=== PATIENT | male | born 1970 | race Caucasian/White ===

== ENCOUNTER 2022-10-01 21:56 | Inpatient (IN) | payer OTHER, SELFPAY ==
[2022-10-01 21:56] VITALS: BP 161/104; PULSE 85; RESP 18; TEMP 36.6; O2SAT 95
[2022-10-01 22:00] VITALS: BP 161/104; PULSE 85; RESP 18; TEMP 36.6; O2SAT 95
--- NOTE | 2022-10-01 22:22 | PC.NURSE ---
96 HH Rights Copy of 96 Hour Hold rights served to pt by this RN and security. No questions at this time.
[2022-10-01 22:33] VITALS: BMI 38.2
--- NOTE | 2022-10-01 22:45 | PC.NURSE ---
Pt arrived to NPU w/police escort. 96 hour hold paperwork completed. Pt is alert and orientated to self, unaware of time and situation. Pt presents w/emesis present on his clothing, police state he threw up during transport. Pt is difficult to assess d/t difficulty finding words and confusion. Assessment completed and pt shown to his room.
[2022-10-02 06:00] VITALS: BP 120/73; PULSE 78; RESP 16; O2SAT 95
[2022-10-02] MEDS: lithium carbonate 300 mg Capsule 600 MG PO (08:41)
[2022-10-02] MEDS: CLONazepam 1 mg Tablet PO ×2 (08:41→18:35)
[2022-10-02] MEDS: propranolol 20 mg Tablet 10 MG PO ×2 (08:41→18:35)
[2022-10-02] MEDS: nicotine 2 mg Gum BUCCAL ×2 (12:43→15:52)
[2022-10-02 13:34] VITALS: BP 132/82; PULSE 88; RESP 16; TEMP 36.4; O2SAT 99
--- NOTE | 2022-10-02 14:12 | P.NPUHP_ITS ---
Providers/Chief Complaint Admitting Physician: Tera Wolfe MD Chief Complaint: SI [facility] NPU History of Present Illness Juni Tay is a 52 year old male who presented to the [facility] in [facility] with the patient engaged in bizarre behavior and not able to provide any information regarding his wellbeing. Patient had apparently just been recently discharged from an inpatient unit in [place] on 09/25/2022. Per records, the patient had been compliant with his medication. He had been transferred to the neuropsychiatric unit at [facility] for further evaluation and treatment. The patient was unable to provide any information on the unit regarding his care as he appeared very confused and stated that he could not remember anything. Per information gathered from the patient's , the patient had been discharged on Klonopin, lithium,, olanzapine, Cogentin, and propranolol. She reports that the patient had been compliant with his medications for a week but had continued to decompensate. The patient had a reported history of bipolar disorder and according to his he had been hospitalized numerous times for bipolar disorder. According to previous record s, patient prior to admission had been engaging in unusual behavior including spraying hairspray's in the room and had been unable to engage in completing activities of daily living with the patient not brushing his teeth and completing personal hygiene. The patient's had stated that patient had been having this problem for about 4 years and had recently become worse since his last hospitalization in [place]. Past psychiatric history: History of bipolar type I. Inpatient psychiatric history: History of multiple inpatient hospitalization. Current medications: Bernice 600 mg twice a day, olanzapine 20 mg at night, Seroquel 500 mg at night, Cogentin 2 mg at night, Klonopin 1 mg at night, propranolol 20 mg daily Drug and alcohol history: None reported, urine drug screen was negative for any illicit drugs and negative for alcohol. Allergies: No known drug allergies Medical history: None Surgical history: None Family psychiatric history none reported Psychosocial history: Patient has been and reports having no children. He reports having received a masters in education. Meds NPU Home Medications Medication Instructions Recorded Confirmed Last Taken Type benztropine 1 mg tablet 1 mg PO BEDTIME 10/01/22 10/01/22 Unknown History clonazepam 1 mg tablet (Klonopin) 1 mg PO BID 10/01/22 10/01/22 Unknown History lithium carbonate 600 mg capsule 600 mg PO BID 10/01/22 10/01/22 Unknown History olanzapine 15 mg tablet 15 mg PO QPM 10/01/22 10/01/22 Unknown History propranolol 10 mg tablet 10 mg PO BID 10/01/22 10/01/22 Unknown History quetiapine 100 mg tablet (Seroquel) 100 mg PO BEDTIME 10/01/22 10/01/22 Unknown History quetiapine 400 mg tablet (Seroquel) 400 mg PO BEDTIME 10/01/22 10/01/22 Unknown History Allergies Allergy/AdvReac Type Severity Reaction Status Date / Time No Known Allergies Allergy Verified 10/01/22 22:59 Mental Status Exam MSE Comments: The patient was initially seen walking the hallway with a steady but slow gait. He had urinated on himself earlier that day. His hygiene was poor he is an obese white male who appeared his stated age. There was a mild tremor appreciated bilaterally. His speech was slurred and monotone with significant increased latency in speech. He was friendly and cooperative on interview. He was alert to his name only and was unable to provide information regarding the name of the hospital, the day , the year, the month, or the day of the week. He was able to tell us that his day and month of but not the year. He appeared very confused. He also appeared to have a significant intention tr emor. His thought process was nonlinear and showed evidence of looseness of associations. He did not endorse suicidal or homicidal ideation. He did at times appear to be responding to internal stimuli. He was unable to follow three-step commands. His attention span was impaired. He had placed a Post-it note on his ear and was unable to explain why it was on his face. His insight and judgment are impaired his impulse control appeared poor. Vitals/I&O/Wt Last Vital Signs Temp 97.5 F L 10/02/22 13:34 Pulse 88 10/02/22 13:34 Resp 16 10/02/22 13:34 BP 132/82 10/02/22 13:34 Pulse Ox 99 10/02/22 13:34 O2 Del Method Room Air 10/02/22 06:00 Weight last 48 hrs Weight 117.651 kg A&P Assessment and plan (1) Bipolar I disorder with amanda: (2) Acute alteration in mental status: (3) [place] toxicity: Plan Patient is a 52-year-old white male with a reported history of type I bipolar disorder with psychotic symptoms who appears to have declining function over the past week but appears possibly delirious at this time. 1.?Encourage individual, group and milieu therapy. 2.?Recommend sober living treatment at the highest level of care to which the patient is willing to commit. 3.??? Continue q-15 minute checks for safety.? 4. Hold Bernice at this time with concern with lithium toxicity. Check kennedy ctrolytes and lithium level stat 5. Restart other medications including zyprexa. Involuntary Hold Information 96 Hour Hold: 96 Hour Involuntary Admission: Yes 96 Hour Hold Ending Date: 10/05/22 96 Hour Hold Ending Time: 21:55 Attestations NPU Medical Necessity Statement*: Inpatient hospitalization is medically necessary and deemed to be the clinically appropriate intervention at this time. We will monitor and initiate medications while making changes as indicated. He will be in the hospital for over 2 midnights. Is likely length of stay is 5 to 7 days. Coding Level of Care Code Acute Code for [facility] Fwd Diagnoses Bipolar I disorder with amanda F31.10 Acute alteration in mental status R41.82 [place] toxicity T56.891A
[2022-10-02 15:32] LABS: Carbon Dioxide 23 mmol/L (22-29); Chloride 101 mmol/L (98-107); Sodium 135 mmol/L (136-145)
[2022-10-02 15:34] LABS: Anion Gap 14.7 (5-19); Potassium 3.7 mmol/L (3.5-5.1)
[2022-10-02 15:39] LABS: Lithium 1.2 mmol/L (0.6-1.2)
[2022-10-02] MEDS: OLANZapine 5 mg TABLET 15 MG PO (18:35)
[2022-10-02 20:18] VITALS: BP 141/90; PULSE 88; RESP 18; TEMP 36.4; O2SAT 95
[2022-10-02] MEDS: quetiapine 100 mg Tablet 400 MG PO (20:29)
[2022-10-02] MEDS: quetiapine 100 mg Tablet PO (20:29)
[2022-10-02] MEDS: benztropine 1 mg Tablet PO (20:29)
[2022-10-02 21:20] LABS: Add Urine Microscopic? NO; Charge for UA Resulting for Rev
[2022-10-02 21:24] LABS: Bilirubin Urine 1+ (Negative); Blood Urine Neg (Negative); Glucose Urine UA Norm (Normal); Ketones Urine Negative (Negative); Leukocyte Esterase Urine Negative (Negative); Nitrate Urine Negative (Negative); Protein Urine Neg (Negative); Urine Appearance Clear (CLEAR); Urine Color Dark Yellow (Yellow); Urobilinogen Urine 1 mg/dL (Negative); pH Urine 5 (5-7)
[2022-10-02] MEDS: OLANZapine 5 mg ODT PO (22:40)
[2022-10-02] MEDS: albuterol 2.5 mg/3 mL Neb INHALATION (22:56)
[2022-10-02 22:57] VITALS: PULSE 98; RESP 18; O2SAT 96
--- NOTE | 2022-10-03 06:42 | PC.NURSE ---
Pt would not wake up for vital signs. Respiration Rate 18.
[2022-10-03] MEDS: CLONazepam 1 mg Tablet PO (09:17)
[2022-10-03] MEDS: propranolol 20 mg Tablet 10 MG PO ×2 (09:17→17:35)
[2022-10-03] MEDS: nicotine 2 mg Gum BUCCAL ×3 (11:53→17:35)
[2022-10-03 14:00] VITALS: BP 127/89; PULSE 84; RESP 17; TEMP 36.7; O2SAT 96
--- NOTE | 2022-10-03 16:53 | P.NPUPN_ITS ---
Subjective NPU Subjective: 52-year-old male with a history of bipolar disorder admitted with confusion currently on multiple medications. Patient's lithium level was found to be 1.2 which suggested lithium toxicity. Patient had no more episodes of vomiting noted today. He continued to appear somewhat confused but did not have any problems with his balance today. He had been unable to provide any reasonable information regarding his medications or hospitalization although he had been pleasant and redirectable on the milieu. Patient's had reported that the patient had been confused for several days despite taking his medications as prescribed upon discharge from the hospital in [place]. Mental Status Exam MSE Comments: The patient was initially seen walking the hallway with a steady but slow gait. His hygiene was poor. he is an obese white male who appeared his stated age. There was a mild tremor appreciated bilaterally. His speech was less slurred and monotone with significant increased latency in speech. He was friendly and cooperative on interview. He was alert to his name only and was unable to provide information regarding the name of the hospital, the day , the year, the month, or the day of the week. He was not oriented to person or place. He remained confused. He also appeared to have a significant intention tremor. His thought process was nonlinear and showed evidence of looseness of associations. He did not endorse suicidal or homicidal ideation. He did at times appear to be responding to internal stimuli. He was unable to follow three-step commands. His attention span was impaired. His insight and judgment are impaired his impulse control appeared poor. Vitals/I&O/Wt Last Vital Signs Temp 98.1 F 10/03/22 14:00 Pulse 84 10/03/22 14:00 Resp 17 10/03/22 14:00 BP 127/89 10/03/22 14:00 Pulse Ox 96 10/03/22 14:00 O2 Del Method Room Air 10/02/22 22:57 Weight last 48 hrs Weight 117.651 kg Data NPU 10/02/22 15:05 A&P Assessment and plan (1) Bipolar I disorder with amanda: (2) Acute alteration in mental status: (3) [place] toxicity: Plan Patient is a 52-year-old white male with a reported history of type I bipolar disorder with psychotic symptoms who appears to have declining function over the past week but appears possibly delirious at this time. 1.?Encourage individual, group and milieu therapy. 2.?Recommend sober living treatment at the highest level of care to which the patient is willing to commit. 3.??? Continue q-15 minute checks for safety.? 4. D/C [place] 5. Restart other medications including zyprexa. Involuntary Hold Information 96 Hour Hold: 96 Hour Involuntary Admission: Yes 96 Hour Hold Ending Date: 10/05/22 96 Hour Hold Ending Time: 21:55 Attestations NPU Medical Necessity Statement*: Inpatient hospitalization is medically necessary and deemed to be the clinically appropriate intervention at this time. We will monitor and initiate medications while making changes as indicated. Is likely length of stay is 5 to 7 days. Coding Level of Care Code Acute Code for [facility] Diagnoses Bipolar I disorder with amanda F31.10 Acute alteration in mental status R41.82 [place] toxicity T56.891A
[2022-10-03] MEDS: CLONazepam 0.5 mg Tablet PO (17:35)
[2022-10-03] MEDS: OLANZapine 5 mg TABLET 15 MG PO (17:35)
[2022-10-03] MEDS: benztropine 1 mg Tablet PO (20:01)
[2022-10-03] MEDS: quetiapine 100 mg Tablet PO (20:01)
[2022-10-03] MEDS: quetiapine 100 mg Tablet 400 MG PO (20:01)
[2022-10-03] MEDS: haloperidol 5 mg Tablet PO (20:28)
[2022-10-03 21:16] VITALS: BP 160/99; PULSE 90; RESP 18; O2SAT 97
[2022-10-03] MEDS: trazodone 50 mg Tablet PO (22:14)
--- NOTE | 2022-10-03 22:18 | PC.NURSE ---
PT WALKING HALLS CONVERSING WITH PEERS. PT DENIES SI/HI AND AVH AT THIS TIME. PT STATES MY MEMORY IS SHOT. PT IS UNABLE TO TELL RN THE MONTH OR YEAR. PT STATES HE CAN REMEMBER YEARS AGO BUT NOT RECENT EVENTS. PT IS CALM AND COOPERATIVE. HAS DIFFICULTY FINDING WORDS TO REPORT HIS NEEDS. PT DENIES PAIN.
--- NOTE | 2022-10-04 04:07 | PC.NURSE ---
PT RECEIVED HALDOL 5 MG FOR ANXIETY THIS SHIFT AND IT WAS EFFECTIVE. PT ALSO REQUESTED AND RECEIVED TRAZODONE 50 MG FOR SLEEP, PT DID LAY DOWN AND HAS RESTED FOR APPROXIMATELY 6 HOURS. PRN MEDICATION WAS EFFECTIVE.
[2022-10-04 06:00] VITALS: BP 143/80; PULSE 90; RESP 16; O2SAT 98
[2022-10-04] MEDS: nicotine 2 mg Gum BUCCAL ×3 (07:45→13:34)
[2022-10-04] MEDS: propranolol 20 mg Tablet 10 MG PO ×2 (09:43→17:53)
[2022-10-04] MEDS: CLONazepam 0.5 mg Tablet PO ×2 (09:43→17:54)
[2022-10-04 14:00] VITALS: BP 148/101; PULSE 95; RESP 17; O2SAT 96
[2022-10-04] MEDS: OLANZapine 5 mg TABLET 15 MG PO (17:53)
--- NOTE | 2022-10-04 18:09 | W.PM.NPUPNS ---
Subjective NPU Subjective: Patient is in today reporting that he is doing okay. He reports that he is any issues with the medication changes including discontinuation of the lithium. He is a fairly poor historian tending towards I will double as an answer for the specifics of what has been going on since he was admitted. We discussed his 90s, hold ending tomorrow night and us determining whether we would initiate a 21-day hold the morning. Mental Status Exam MSE Comments: This is an obese older white male in hospital scrubs with limited grooming and eye contact. No abnormal movements except for psychomotor retardation. Mostly cooperative with exam in mild distress. Speech was decreased rate normal volume. Some continued response latency. Mood described as better than I got here, affect subdued. Thought process linear. Thought content: Patient denied suicidal or homicidal ideation, there were no delusions reported or noted, he denied auditory or visual elucidation's. Attention concentration were limited and memory was unreliable but not were formally tested. He is alert and oriented times person and place. Insight and judgment are limited impulse control impaired. Vitals/I&O/Wt Last Vital Signs Temp 98.4 F 10/04/22 20:53 Pulse 87 10/04/22 20:53 Resp 20 H 10/04/22 20:53 BP 154/100 10/04/22 20:53 Pulse Ox 96 10/04/22 20:53 O2 Del Method Room Air 10/04/22 20:53 Data NPU 10/02/22 15:05 A&P Assessment and plan (1) Bipolar I disorder with amanda: (2) Acute alteration in mental status: (3) [place] toxicity: Plan Patient is a 52-year-old white male with a reported history of type I bipolar disorder with psychotic symptoms who appears to have declining function over the past week but appears possibly delirious at this time. 1.?Encourage individual, group and milieu therapy. 2.?Recommend sober living treatment at the highest level of care to which the patient is willing to commit. 3.??? Continue q-15 minute checks for safety.? 4. Discontinued lithium. 5. Restarted other medications including zyprexa. Involuntary Hold Information 96 Hour Hold: 96 Hour Involuntary Admission: Yes 96 Hour Hold Ending Date: 10/05/22 96 Hour Hold Ending Time: 21:55 Attestations NPU Medical Necessity Statement*: Inpatient hospitalization is medically necessary and deemed to be the clinically appropriate intervention at this time. We will monitor and initiate medications while making changes as indicated. Is likely length of stay is 4-6 days. Coding Level of Care Code Acute Code for [facility] Diagnoses Bipolar I disorder with amanda F31.10 Acute alteration in mental status R41.82 [place] toxicity T56.891A
[2022-10-04] MEDS: quetiapine 100 mg Tablet 400 MG PO (20:45)
[2022-10-04] MEDS: trazodone 50 mg Tablet PO (20:45)
[2022-10-04] MEDS: quetiapine 100 mg Tablet PO (20:45)
[2022-10-04] MEDS: benztropine 1 mg Tablet PO (20:46)
[2022-10-04 20:53] VITALS: BP 154/100; PULSE 87; RESP 20; TEMP 36.9; O2SAT 96
--- NOTE | 2022-10-04 22:10 | PC.NURSE ---
WALKING DOWN HALLWAY WITH PEERS. PT DENIES SI/HI AND AVH AT THIS TIME. DENIES PAIN. MEMORY APPEARS TO BE A LITTLE BETTER TODAY. PT WAS ABLE TO TELL THIS RN THE MONTH, NEEDED HELP WITH DAY OF THE WEEK, AND ABLE TO STATE THE YEAR WAS 2021, ONLY ONE YEAR OFF. YESTERDAY PT COULD NOT TELL YOU THE YEAR. PT CONTINUES TO HAVE DIFFICULTY STATING HIS NEEDS BUT IT HAS IMPROVED. PT REQUESTED HIS MEDS AND THEN WENT TO BED SHORTLY AFTER.
--- NOTE | 2022-10-05 03:11 | PC.NURSE ---
PT REQUESTED TRAZODONE TO ASSIST HIM WITH SLEEPING DUE TO SEVERE INSOMNIA. PT WAS GIVEN TRAZODONE 50MG ORDERED. PT WAS ABLE TO LAY DOWN SHORTLY AFTER PM MEDS AND PRN TRAZODONE. PT HAS BEEN RESTING WITH EYES CLOSED. SINCE. MEDICATION WAS EFFECTIVE.
[2022-10-05 06:00] VITALS: BP 136/93; PULSE 98; RESP 20; O2SAT 94
[2022-10-05] MEDS: propranolol 20 mg Tablet 10 MG PO ×2 (08:49→20:55)
[2022-10-05] MEDS: CLONazepam 0.5 mg Tablet PO ×2 (08:49→20:56)
[2022-10-05] MEDS: nicotine 2 mg Gum BUCCAL (12:41)
[2022-10-05 14:00] VITALS: BP 131/91; PULSE 85; RESP 16; TEMP 36.6; O2SAT 96
--- NOTE | 2022-10-05 18:35 | P.NPUPN_ITS ---
Subjective NPU Subjective: Patient presents today continuing to be a limited historian. He is responding to questions appropriately but with limited spontaneity. He was less isolative and more interactive with staff and other patients. We discussed continuing to monitor him off of lithium and see how he does through the weekend. Mental Status Exam MSE Comments: This is an obese older white male in hospital scrubs with limited grooming and eye contact. No abnormal movements except for psychomotor retardation. Mostly cooperative with exam in mild distress. Speech was decreased rate normal volume. Some continued response latency. Mood described as better than I got here, affect subdued. Thought process linear. Thought content: Patient denied suicidal or homicidal ideation, there were no delusions reported or noted, he denied auditory or visual elucidation's. Attention concentration were limited and memory was unreliable but not were formally tested. He is alert and oriented times person and place. Insight and judgment are limited impulse control impaired. Vitals/I&O/Wt Last Vital Signs Temp 98 F 10/05/22 14:00 Pulse 85 10/05/22 14:00 Resp 16 10/05/22 14:00 BP 131/91 10/05/22 14:00 Pulse Ox 96 10/05/22 14:00 O2 Del Method Room Air 10/05/22 14:00 Data NPU 10/02/22 15:05 A&P Assessment and plan (1) Bipolar I disorder with amanda: (2) Acute alteration in mental status: (3) [place] toxicity: Plan Patient is a 52-year-old white male with a reported history of type I bipolar disorder with psychotic symptoms who appears to have declining function over the past week but appears possibly delirious at this time. 1.?Encourage individual, group and milieu therapy. 2.?Recommend sober living treatment at the highest level of care to which the patient is willing to commit. 3.??? Continue q-15 minute checks for safety.? 4. Discontinued lithium. 5. Restarted other medications including zyprexa. Involuntary Hold Information 96 Hour Hold: 96 Hour Involuntary Admission: Yes 96 Hour Hold Ending Date: 10/05/22 96 Hour Hold Ending Time: 21:55 Attestations NPU Medical Necessity Statement*: Inpatient hospitalization is medically necessary and deemed to be the clinically appropriate intervention at this time. We will monitor and initiate medications while making changes as indicated. Is likely length of stay is 3-5 days. Coding Level of Care Code Acute Code for [facility] Fwd Diagnoses Bipolar I disorder with amanda F31.10 Acute alteration in mental status R41.82 [place] toxicity T56.891A
[2022-10-05 20:47] VITALS: BP 153/103; PULSE 97; RESP 18; TEMP 36.7; O2SAT 95
[2022-10-05] MEDS: OLANZapine 5 mg TABLET 15 MG PO (20:55)
[2022-10-05] MEDS: quetiapine 100 mg Tablet 400 MG PO (20:56)
[2022-10-05] MEDS: benztropine 1 mg Tablet PO (20:56)
[2022-10-05] MEDS: quetiapine 100 mg Tablet PO (20:56)
[2022-10-06 06:00] VITALS: BP 140/91; PULSE 87; RESP 16; O2SAT 97
[2022-10-06] MEDS: CLONazepam 0.5 mg Tablet PO ×2 (08:44→17:43)
[2022-10-06] MEDS: propranolol 20 mg Tablet 10 MG PO ×2 (08:45→17:43)
--- NOTE | 2022-10-06 12:01 | P.NPUPN_ITS ---
Subjective NPU Subjective: Patient presented today reporting that he is doing okay. He continues to have basic understanding but is going on but seeming to be somewhat confused. He reports that he is tolerating the medications fine and like many other patients on the unit was very focused on the new patient who is being very aggressive. He was able to be insightful about the situation and denied any other pressing issues. Mental Status Exam MSE Comments: This is an obese older white male in hospital scrubs with limited grooming and eye contact. No abnormal movements except for psychomotor retardation. Mostly cooperative with exam in mild distress. Speech was decreased rate normal volume. Some continued response latency. Mood described as better than I got here, affect subdued. Thought process linear. Thought content: Patient denied suicidal or homicidal ideation, there were no delusions reported or noted, he denied auditory or visual elucidation's. Attention concentration were limited and memory was unreliable but not were formally tested. He is alert and oriented times person and place. Insight and judgment are limited impulse control impaired. Vitals/I&O/Wt Last Vital Signs Temp 98.1 F 10/05/22 20:47 Pulse 87 10/06/22 06:00 Resp 16 10/06/22 06:00 BP 140/91 10/06/22 06:00 Pulse Ox 97 10/06/22 06:00 O2 Del Method Room Air 10/05/22 20:47 Data NPU 10/02/22 15:05 A&P Assessment and plan (1) Bipolar I disorder with amanda: (2) Acute alteration in mental status: (3) [place] toxicity: Plan Patient is a 52-year-old white male with a reported history of type I bipolar disorder with psychotic symptoms who appears to have declining function over the past week but appears possibly delirious at this time. 1.?Encourage individual, group and milieu therapy. 2.?Recommend sober living treatment at the highest level of care to which the patient is willing to commit. 3.??? Continue q-15 minute checks for safety.? 4. Discontinued lithium. 5. Restarted other medications including zyprexa. Involuntary Hold Information 96 Hour Hold: 96 Hour Involuntary Admission: Yes 96 Hour Hold Ending Date: 10/05/22 96 Hour Hold Ending Time: 21:55 Attestations NPU Medical Necessity Statement*: Inpatient hospitalization is medically necessary and deemed to be the clinically appropriate intervention at this time. We will monitor and initiate medications while making changes as indicated. Is likely length of stay is 3-5 days. Coding Level of Care Code Acute Code for [facility] Fwd Diagnoses Bipolar I disorder with amanda F31.10 Acute alteration in mental status R41.82 [place] toxicity T56.891A
[2022-10-06 14:00] VITALS: BP 147/98; PULSE 96; TEMP 36.6; O2SAT 95
[2022-10-06] MEDS: OLANZapine 5 mg TABLET 15 MG PO (17:42)
[2022-10-06 20:10] VITALS: BP 142/92; PULSE 80; RESP 18; TEMP 36.7; O2SAT 95
[2022-10-06] MEDS: benztropine 1 mg Tablet PO (20:16)
[2022-10-06] MEDS: quetiapine 100 mg Tablet 400 MG PO (20:16)
[2022-10-06] MEDS: quetiapine 100 mg Tablet PO (20:16)
[2022-10-07 06:00] VITALS: BP 137/85; PULSE 96; RESP 18; TEMP 36.5; O2SAT 97
[2022-10-07] MEDS: propranolol 20 mg Tablet 10 MG PO ×2 (08:34→18:18)
[2022-10-07] MEDS: CLONazepam 0.5 mg Tablet PO ×2 (08:34→18:18)
[2022-10-07] MEDS: nicotine 2 mg Gum BUCCAL ×3 (09:19→19:14)
[2022-10-07] MEDS: acetaminophen 325 mg Tablet 650 MG PO (10:23)
--- NOTE | 2022-10-07 13:13 | P.NPUPN_ITS ---
Subjective NPU Subjective: Patient presented today reporting that he is feeling that he is getting back to being his normal self. He was asking about the possibility of discharge tomorrow. He reports that he will go back with his . And reported that circumstance is stable. We agreed we would reach out to her with the social work team and identify how she feels he is doing as far as his cognitive abilities versus baseline. Per staff his improvement is significant given he initially was unable to articulate a sentence. We discussed the likelihood of discharge soon if reports that he is functioning back at baseline/normal. Mental Status Exam MSE Comments: This is an obese older white male in hospital scrubs with limited grooming and eye contact. No abnormal movements except for psychomotor retardation. Mostly cooperative with exam in mild distress. Speech was decreased rate normal volume. Some continued response latency but continued improvement. Mood described as pretty good, affect appearing more euthymic. Thought process linear. Thought content: Patient denied suicidal or homicidal ideation, there were no delusions reported or noted, he denied auditory or visual elucidation's. Attention concentration were limited and memory was unreliable but not were formally tested. He is alert and oriented times person and place. Insight and judgment are limited, but improving impulse control limited. Vitals/I&O/Wt Last Vital Signs Temp 97.7 F 10/07/22 06:00 Pulse 96 10/07/22 06:00 Resp 18 10/07/22 06:00 BP 137/85 10/07/22 06:00 Pulse Ox 97 10/07/22 06:00 O2 Del Method Room Air 10/07/22 06:00 Weight last 48 hrs Weight 117.934 kg Data NPU 10/02/22 15:05 A&P Assessment and plan (1) Bipolar I disorder with amanda: (2) Acute alteration in mental status: (3) [place] toxicity: Plan Patient is a 52-year-old white male with a reported history of type I bipolar disorder with psychotic symptoms who appears to have declining function over the past week but appears possibly delirious at this time. 1.?Encourage individual, group and milieu therapy. 2.?Recommend sober living treatment at the highest level of care to which the patient is willing to commit. 3.??? Continue q-15 minute checks for safety.? 4. Discontinued lithium. 5. Restarted other medications including zyprexa. Involuntary Hold Information 96 Hour Hold: 96 Hour Involuntary Admission: Yes 96 Hour Hold Ending Date: 10/05/22 96 Hour Hold Ending Time: 21:55 Attestations NPU Medical Necessity Statement*: Inpatient hospitalization is medically necessary and deemed to be the clinically appropriate intervention at this time. We will monitor and initiate medications while making changes as indicated. Likely length of stay is 1-4 days. Coding Level of Care Code Acute Code for [facility] Diagnoses Bipolar I disorder with amanda F31.10 Acute alteration in mental status R41.82 [place] toxicity T56.891A
[2022-10-07 14:00] VITALS: BP 123/90; PULSE 92; RESP 18; TEMP 36.6; O2SAT 96
[2022-10-07] MEDS: OLANZapine 5 mg TABLET 15 MG PO (18:18)
[2022-10-07] MEDS: quetiapine 100 mg Tablet PO (20:15)
[2022-10-07] MEDS: benztropine 1 mg Tablet PO (20:15)
[2022-10-07] MEDS: quetiapine 100 mg Tablet 400 MG PO (20:15)
[2022-10-07 20:26] VITALS: BP 140/95; PULSE 93; RESP 18; TEMP 36.4; O2SAT 97
[2022-10-08 06:00] VITALS: BP 123/82; PULSE 76; RESP 16; O2SAT 96
[2022-10-08] MEDS: CLONazepam 0.5 mg Tablet PO ×2 (08:46→17:05)
[2022-10-08] MEDS: propranolol 20 mg Tablet 10 MG PO ×2 (08:46→17:05)
[2022-10-08] MEDS: nicotine 2 mg Gum BUCCAL (12:54)
[2022-10-08 14:00] VITALS: BP 142/88; PULSE 78; RESP 18; TEMP 36.6; O2SAT 97
[2022-10-08] MEDS: OLANZapine 5 mg TABLET 15 MG PO (17:05)
--- NOTE | 2022-10-08 17:40 | P.NPUPN_ITS ---
Subjective NPU Subjective: Patient presented today with continued slow improvement and increase spontaneity of mentation. Patient endorsing some memory issues but reports being aware of them. [facility] reports by staff of decreasing memory and cognitive issues and we discussed this possibly being some kind of encephalopathy. We discussed the likelihood of discharge tomorrow, but definitely in the next 48 hours with neurology follow-up. Mental Status Exam MSE Comments: This is an obese older white male in hospital scrubs with limited grooming and eye contact. No abnormal movements except for psychomotor retardation. Mostly cooperative with exam in mild distress. Speech was more normal rate and volume. No significant response latency. Mood described as pretty good, affect appearing more euthymic. Thought process linear. Thought content: Patient denied suicidal or homicidal ideation, there were no delusions reported or noted, he denied auditory or visual elucidation's. Attention concentration were limited and memory was unreliable but not were formally tested. He is alert and oriented times person and place. Insight and judgment are limited, but improving impulse control limited. Vitals/I&O/Wt Last Vital Signs Temp 98.0 F 10/08/22 20:27 Pulse 82 10/08/22 20:27 Resp 16 10/08/22 20:27 BP 153/90 10/08/22 20:27 Pulse Ox 94 10/08/22 20:27 O2 Del Method Room Air 10/08/22 20:27 Weight last 48 hrs Weight 117.934 kg Data NPU 10/02/22 15:05 A&P Assessment and plan (1) Bipolar I disorder with amanda: (2) Acute alteration in mental status: (3) New Era toxicity: Plan Patient is a 52-year-old white male with a reported history of type I bipolar disorder with psychotic symptoms who appears to have declining function over the past week but appears possibly delirious at this time. 1.?Encourage individual, group and milieu therapy. 2.?Recommend sober living treatment at the highest level of care to which the patient is willing to commit. 3.??? Continue q-15 minute checks for safety.? 4. Discontinued lithium. 5. Restarted other medications including zyprexa. 6. Plan to discharge in the next 48 hours with follow-up with neurology. Involuntary Hold Information 96 Hour Hold: 96 Hour Involuntary Admission: Yes 96 Hour Hold Ending Date: 07/14/23 96 Hour Hold Ending Time: 21:55 Attestations NPU Medical Necessity Statement*: Inpatient hospitalization is medically necessary and deemed to be the clinically appropriate intervention at this time. We will monitor and initiate medications while making changes as indicated. Likely length of stay is 1-3 days. Coding Level of Care Code Acute Code for Chg Fwd Diagnoses Bipolar I disorder with amanda F31.10 Acute alteration in mental status R41.82 New Era toxicity T56.891A
[2022-10-08] MEDS: quetiapine 100 mg Tablet PO (19:34)
[2022-10-08] MEDS: benztropine 1 mg Tablet PO (19:35)
[2022-10-08] MEDS: quetiapine 100 mg Tablet 400 MG PO (19:35)
[2022-10-08] MEDS: hyDROXYzine 25 mg Capsule 50 MG PO (20:13)
[2022-10-08] MEDS: trazodone 50 mg Tablet PO (20:14)
[2022-10-08 20:27] VITALS: BP 153/90; PULSE 82; RESP 16; TEMP 36.7; O2SAT 94
[2022-10-09 06:00] VITALS: BP 148/94; PULSE 99; RESP 16; O2SAT 97
[2022-10-09] MEDS: propranolol 20 mg Tablet 10 MG PO (08:15)
[2022-10-09] MEDS: CLONazepam 0.5 mg Tablet PO (08:15)
[2022-10-09] MEDS: nicotine 2 mg Gum BUCCAL (10:00)
--- NOTE | 2022-10-09 12:26 | P.NPUDS_ITS ---
Diagnoses at Discharge Discharge Diagnosis (1) Bipolar I disorder with amanda: Status: Acute (2) Acute alteration in mental status: Status: Acute (3) Helix toxicity: Status: Acute Reason for Visit Reason for Visit: SI Brief History: History of Present Illness Juni Tay is a 52 year old male who presented to the [facility] in [facility] with the patient engaged in bizarre behavior and not able to provide any information regarding his wellbeing. Patient had apparently just been recently discharged from an inpatient unit in [place] on 09/25/2022. Per records, the patient had been compliant with his medication. He had been transferred to the neuropsychiatric unit at [facility] for further evaluation and treatment. The patient was unable to provide any information on the unit regarding his care as he appeared very confused and stated that he could not remember anything. Per information gathered from the patient's , the patient had been discharged on Klonopin, lithium,, olanzapine, Cogentin, and propranolol. She reports that the patient had been compliant with his medications for a week but had continued to decompensate. The patient had a reported history of bipolar disorder and according to his he had been hospitalized numerous times for bipolar disorder. According to previous records, patient prior to admission had been engaging in unusual behavior including spraying hairspray's in the room and had been unable to engage in completing activities of daily living with the patient not brushing his teeth and completing personal hygiene. The patient's had stated that patient had been having this problem for about 4 years and had recently become worse since his last hospitalization in [place]. Past psychiatric history: History of bipolar type I. Inpatient psychiatric history: History of multiple inpatient hospitalization. Current medications: Helix 600 mg twice a day, olanzapine 20 mg at night, Seroquel 500 mg at night, Cogentin 2 mg at night, Klonopin 1 mg at night, propranolol 20 mg daily Drug and alcohol history: None reported, urine drug screen was negative for any illicit drugs and negative for alcohol. Allergies: No known drug allergies Medical history: None Surgical history: None Family psychiatric history none reported Psychosocial history: Patient has been and reports having no children. He reports having received a masters in education. Hospital Course Hospital Course He slowly acclimated to the individual, group and milieu therapies provided.? He presented with significant altered mental status with elevated lithium. Helix was discontinued and Klonopin was decreased from 1 mg p.o. twice daily to 0.5 mg p.o. twice daily. He worked with the social work team for appropriate aftercare and outpatient services. He demonstrated significant improvement and was able to contract for safety outside the hospital prior to discharge.? During the hospitalization, patient had routine laboratory studies which were within normal limits except for few outliers.? Additionally there was a general medical evaluation which was also within normal limits and revealed no new acute processes. Discharge Summary: At the time of discharge, he denied psychosis or lethality and cognition was vastly improved.? Mood and anxiety were well managed.? Patient endorsed a plan to avoid all drugs of abuse and follow-up with the aftercare recommendations of the treatment team.? Patient was evaluated and deemed to be absent credible lethality, and had achieved the maximum benefit from an inpatient hospitalization, so was discharged. Involuntary Hold Information 96 Hour Hold: 96 Hour Involuntary Admission: Yes 96 Hour Hold Ending Date: 10/05/22 96 Hour Hold Ending Time: 21:55 Mental Status Exam MSE Comments: This is an obese older white male in hospital scrubs with limited grooming and eye contact. No abnormal movements except for psychomotor retardation. Mostly cooperative with exam in mild distress. Speech was more normal rate and volume. No significant response latency. Mood described as pretty good, affect appearing more euthymic. Thought process linear. Thought content: Patient denied suicidal or homicidal ideation, there were no delusions reported or noted, he denied auditory or visual elucidation's. Attention concentration were limited and memory was unreliable but not were formally tested. He is alert and oriented times person and place. Insight and judgment are limited, but improving impulse control limited. Discharge Data Studies Completed and Pending: Laboratory Results Sodium 135 mmol/L (136-1 45) L 10/02/22 15:05 Potassium 3.7 mmol/L (3.5-5 .1) 10/02/22 15:05 Chloride 101 mmol/L (98-10 7) 10/02/22 15:05 Carbon Dioxide 23 mmol/L (22-29) 10/02/22 15:05 Anion Gap 14.7 (5-19) 10/02/22 15:05 Urine Color Dark yellow (Yel low) 10/02/22 21:12 Urine Appearance Clear (CLEAR) 10/02/22 21:12 Urine pH 5 (5-7) 10/02/22 21:12 Ur Specific Gravit y 1.020 (1.005-1.0 30) 10/02/22 21:12 Urine Protein Neg (Negative) 10/02/22 21:12 Urine Glucose (UA) Norm (Normal) 10/02/22 21:12 Urine Ketones Negative (Negati ve) 10/02/22 21:12 Urine Blood Neg (Negative) 10/02/22 21:12 Urine Nitrate Negative (Negati ve) 10/02/22 21:12 Urine Bilirubin 1+ (Negative) H 10/02/22 21:12 Urine Urobilinogen 1 mg/dL (Negative ) H 10/02/22 21:12 Ur Leukocyte Barbie ase Negative (Negati ve) 10/02/22 21:12 Helix 1.2 mmol/L (0.6-1 .2) 10/02/22 15:05 Vitals: Last Vital Signs Temp 98.0 F 10/08/22 20:27 Pulse 99 10/09/22 06:00 Resp 16 10/09/22 06:00 BP 148/94 10/09/22 06:00 Pulse Ox 97 10/09/22 06:00 O2 Del Method Room Air 10/09/22 06:00 Discharge Plan Discharge Patient Disposition: Home Condition: Stable Prescriptions: New trazodone 50 mg Tablet 50 mg PO BEDTIME PRN (Reason: Sleep) 30 Days Qty: 30 1RF clonazepam 0.5 mg Tablet 0.5 mg PO BID 30 Days Qty: 60 1RF hydroxyzine pamoate 25 mg Capsule 50 mg PO Q6H PRN (Reason: Anxiety) 30 Days Qty: 120 1RF Continued benztropine 1 mg Tablet 1 mg PO BEDTIME albuterol sulfate 90 mcg/actuation HFA aerosol inhaler 2 mcg INHALATION Q6H PRN (Reason: Shortness Of Breath Or Wheezing) Seroquel 100 mg Tablet 100 mg PO BEDTIME 30 Days Qty: 30 1RF Rx Instructions: administer w/400mg dose to equal 500mg dose propranolol 10 mg tablet 10 mg PO BID 30 Days Qty: 60 1RF olanzapine 15 mg Tablet 15 mg PO QPM 30 Days Qty: 30 1RF Seroquel 400 mg Tablet 400 mg PO BEDTIME 30 Days Qty: 30 1RF Rx Instructions: administer w/100mg tablet to equal 500 mg dose Discontinued lithium carbonate 600 mg capsule 600 mg PO BID clonazepam [Klonopin] 1 mg Tablet 1 mg PO BID Discharge Orders: Discharge Order (Routine); Ordered 10/09/22 Ordered By: Josr Richey Referrals: Khari Terry MD-Neurologist [Other] - 11/28/22 12:30 pm (The first appointment will be in [place] and follow ups will be in [place] @ [address] [place] [address].) [facility] [Other] - 11/22/22 9:00 am (Placed on cancellation list. Call 911 for any emergency issues or go to the local [facility]. You can be seen in [place] after the initial visit.) Discharge Diet: Regular Discharge Activity: Resume usual activity Patient Instructions: Bipolar Disorder (GEN), Altered Mental Status (GEN), Helix Toxicity (GEN), Opioid Safety Discharge Attestations NPU Time Spent in Discharge Care*: less than 30 min Specific Discharge Activities: Specific discharge activities: educating patient, discussing with wrapper caser/social workers/dc planners, documenting/other paperwork and evaluating patient/reviewing data Coding Level of Care Code Acute Chg FW DC note Diagnoses Bipolar I disorder with amanda F31.10 Acute alteration in mental status R41.82 Helix toxicity T56.891A
[2022-10-09 12:32] VITALS: BP 148/94; PULSE 99; RESP 16; O2SAT 97
[2022-10-09 14:00] VITALS: BP 138/95; PULSE 93; RESP 16; TEMP 36.8; O2SAT 95
== END 2022-10-09 16:01 | disposition home or self-care (01) | DRG 885 ==
PROVIDERS: Admitting Provider Psychiatry & Neurology Psychiatry; Visit Provider Psychiatry & Neurology Psychiatry
DX: F31.2 Bipolar disorder, current episode manic severe with psychotic features (principal); R41.82 Altered mental status, unspecified; T43.595A Adverse effect of other antipsychotics and neuroleptics, initial encounter
CPT/HCPCS: 36415; 80051; 80178; 81003; 94640; 97150; 97165; 99238; J7613